=== PATIENT | female | born 1975 | race Caucasian/White ===

== ENCOUNTER → 2021-06-14 | Outpatient (CLI) | payer BC ==
[2021-06-14 08:57] VITALS: BP 198/100; PULSE 110; RESP 17; TEMP 98.7
--- NOTE | 2021-06-14 10:07 | P.HPOB ---
History of Present Illness H&P Date: 06/14/21 Chief Complaint: The patient is here for her routine gynecologic exam and ma mmogram. This is a 45-year-old 0-2 with an LMP of 04/08/2021. The patient is here to establish with this office. She has been using condoms and spermicide for control. It is been about 6 years since her last pelvic exam. She has never had a mammogram. She states her menstrual periods have generally been regular every month except for November 2020 when she missed her menstrual per iod. And she has not had a menstrual period since her LMP which started on 04/08/2021. She does not think she is . She has been experiencing some hot flashes which have seemed to increase in frequency during the past few months. She is otherwise without complaints. Review of Systems The patient's weight has been stable over the last year. She denies respira tory, cardiac, or G.I. problems. 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 History of Any Multi-Drug Resistant Organisms: None Reported Past Surgical History: No Surgical Hx Reported Past Anesthesia/Blood Transfusion Reactions: No Reported Reaction, Unable to Obtain Past Psychological History: No Psychological Hx Reported (She has been under some recent stress but denies depression symptoms.) Smoking Status: Never smoker Past Alcohol Use History: Rare (3 or 4 per year) Past Drug Use History: None Reported Additional History: She has been since 1997. She works part-time for a [employer]. - Past Family History Mother Family Medical History: Cancer, Diabetes Mellitus, Hypertension Additional Family Medical History / Comment(s): Uterine cancer. Father Family Medical History: Hypertension Medications and Allergies Home Medications Medication Instructions Recorded Confirmed Type No Known Home Medications 06/14/21 06/14/21 History Allergies Allergy/AdvReac Type Severity Reaction Status Date / Time No Known Allergies Allergy Unverified 06/14/21 08:51 Exam Vital Signs Temp Pulse Resp BP Pulse Ox 06/14/21 08:51 98.7 F 110 H 17 198/100 98 Intake and Output 06/13/21 06/14/21 06/14/21 22:59 06:59 14:59 Other: Weight 133.81 kg Height 5 feet 8 inches, weight 295 pounds, BMI 44.9. Repeat blood pressure 178/102. This is a well-developed well-nourished heavyset white female who is alert and oriented times 3 in no acute distress. HEENT: Within normal limits. NECK: Supple without mass or thyromegaly. CHEST AND LUNGS: Clear to auscultation. HEART: Mild tachycardia and regular rhythm. BREASTS: Are without mass or discharge. AXILLARY EXAM: Negative for adenopathy. BACK: Negative for CVA tenderness. ABDOMEN: Soft, obese, nontender, without palpable masses. PELVIC EXAM: Normal external genitalia. Cervix and vagina appear normal. There is no unusual discharge. There is no evidence of prolapse. The uterus is midposition, approximately 14 week size and nontender. There are no palpable adnexal masses or tenderness. Bimanual examination is somewhat limited secondary to her size. RECTAL EXAM: negative for mass or tenderness and is negative for occult blood. EXTREMITIES: Nontender. IMPRESSION: 1. 45-year-old female with uterine enlargement who is using condoms and spermicide for control. 2. Recent oligomenorrhea following fairly regular menstrual periods with mild vasomotor symptoms. Differential diagnosis will include perimenopausal symptoms, and less likely . 3. Elevated blood pressure with no history of chronic hypertension per the patient. 4. Obesity. PLAN: 1. Pap smear cotest was performed. 2. Self breast awareness was discussed with the patient. We have also discussed symptoms associated with inflammatory breast cancer. 3. Screening mammogram will be done today. 4. I have recommended pelvic ultrasound because of her uterine enlargement. 5. Urine test will be done today. 6. The patient will keep a menstrual calendar and call if menstrual problems. 7.Osteoporosis prevention was discussed. I have stressed the importance of adequate calcium, vitamin D and regular exercise. Recommended amounts of calcium and vitamin D were also discussed. 8. We have discussed her elevated blood pressure. She states she will go to her primary care physician's office immediately after her appointment for evaluation of her significantly elevated blood pressure. I also recommended home blood pressure checks. We have discussed the importance of good nutrition, regular exercise, low-sodium diet and relaxation techniques. We have also discussed how weight loss can also be very helpful in helping to manage blood pressure. 9. She has completed her Covid vaccination series and did receive a booster as well. 10 She was advised to return in one year for her annual well woman exam and as needed.
--- NOTE | 2021-06-15 12:30 | MM ---
Reason for exam: screening (asymptomatic). Baseline mammogram. Physical Findings: A clinical breast exam by your physician is recommended on an annual basis and results should be correlated with mammographic findings. MG 3D Screening Mammo W/Cad Bilateral CC and MLO view(s) were taken. The breast tissue is heterogeneously dense. This may lower the sensitivity of mammography. Nodular denisty upper outer left breast zone A. ASSESSMENT: Incomplete: need additional imaging evaluation, BI-RAD 0 RECOMMENDATION: Special view mammogram and ultrasound of the left breast. [facility] will attempt to contact patient to return for supplemental views and ultrasound.
== END ==
LOC: WWCWWP 08:27
PROVIDERS: ATTEND Obstetrics & Gynecology
DX: Z01.419 Encounter for gynecological examination (general) (routine) without abnormal findings (principal); Z12.31 Encounter for screening mammogram for malignant neoplasm of breast; N85.2 Hypertrophy of uterus; N91.5 Oligomenorrhea, unspecified; R03.0 Elevated blood-pressure reading, without diagnosis of hypertension; E66.9 Obesity, unspecified; Z68.41 Body mass index [BMI] 40.0-44.9, adult
CPT/HCPCS: 77063; 77067; 81025

== ENCOUNTER → 2021-12-27 | Outpatient (CLI) | payer BC ==
--- NOTE | 2021-12-27 09:32 | MM ---
Reason for Exam: Follow-up at short interval from prior study. Last screening mammogram was performed 6 month(s) ago. Patient History: Menarche at age 11. First Full-Term at age 24. Risk Values: Isabel 5 year model risk: 1.0%. NCI Lifetime model risk: 10.2%. Prior Study Comparison: 06/14/2021 Bilateral Screening Mammogram, [facility]. 06/21/2021 Left Diagnostic Mammogram, [facility]. Tissue Density: Left: There are scattered fibroglandular densities. Findings: Analyzed By CAD. No new suspicious masses, calcifications or distortions. Redemonstration of left breast anterior depth 9 mm mass in the upper slightly outer quadrant. Overall Assessment: Incomplete: need additional imaging evaluation, BI-RAD 0 Management: Diagnostic Breast Ultrasound of the left breast. A clinical breast exam by your physician is recommended on an annual basis and results should be correlated with mammographic findings. This exam should not preclude additional follow-up of suspicious palpable abnormalities. Results were given to the patient verbally at the time of exam. Electronically signed and approved by: Pravin Okeefe DO
--- NOTE | 2021-12-27 10:06 | USB ---
Reason for Exam: Follow-up at short interval from prior study. Patient History: Menarche at age 11. First Full-Term at age 24. Risk Values: Isabel 5 year model risk: 1.0%. NCI Lifetime model risk: 10.2%. Prior Study Comparison: 06/14/2021 Bilateral Screening Mammogram, [facility]. 06/21/2021 Left Diagnostic Mammogram, [facility]. Findings: The lower outer quadrant of the left breast, the axilla of the left breast and the retroareolar of the left breast were scanned. A complete US of all four quadrants of the breast and retro-areolar region were reviewed. Redemonstration of lymph node at 4:00 3 cm from nipple with normal reniform morphology, fatty hilum and cortex within normal limits for thickness.Grayscale imaging of the left breast in area of concern. Redemonstration of lymph node at 4:00 3 cm from nipple with normal reniform morphology, fatty hilum and cortex within normal limits for thickness. Overall Assessment: Benign, BI-RAD 2 Management: Screening Mammogram of both breasts in 1 year. A clinical breast exam by your physician is recommended on an annual basis and results should be correlated with mammographic findings. This exam should not preclude additional follow-up of suspicious palpable abnormalities. Results were given to the patient verbally at the time of exam. Electronically signed and approved by: Pravin Okeefe DO
== END | disposition home or self-care (01) ==
LOC: RADMAMWWP 08:59
PROVIDERS: ATTEND Obstetrics & Gynecology
DX: R92.8 Other abnormal and inconclusive findings on diagnostic imaging of breast (principal)
CPT/HCPCS: 77061; 77065

== ENCOUNTER → 2022-07-18 | Outpatient (CLI) | payer BC ==
[2022-07-18 08:07] VITALS: BP 144/87; PULSE 93; RESP 17; TEMP 98.3
--- NOTE | 2022-07-18 08:54 | P.HPOB ---
History of Present Illness H&P Date: 07/18/22 Chief Complaint: The patient is here for her routine gynecologic exam and ma mmogram. This is a 46-year-old 0-2 with an LMP of 07/03/2022. The patient has used condoms with spermicide for control. She had slight menstrual irregularity in 2020, but they have been regular most of last year until March 2022. After March of this year, she skipped 2 months until her LMP. Her menstrual periods have typically been lasting 6-7 days with heavier flow on days 2 and 3. On the heavier days she has to change her protection up to every 3 hours. She states they have not very big problem and denies any significant symptoms from her enlarged uterus. She denies intermenstrual bleeding. Review of Systems The patient has lost 11 pounds over the last year. She has been trying to lose weight with dietary changes. She denies respiratory, cardiac, or G.I. problems. 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 History of Any Multi-Drug Resistant Organisms: None Reported Past Surgical History: No Surgical Hx Reported Past Anesthesia/Blood Transfusion Reactions: No Reported Reaction, Unable to Obtain Past Psychological History: No Psychological Hx Reported Smoking Status: Never smoker Past Alcohol Use History: Rare (3 or 4 per year.) Past Drug Use History: None Reported - Past Family History Mother Family Medical History: AFIB, Cancer, Diabetes Mellitus, Hypertension Additional Family Medical History / Comment(s): Uterine cancer. Parkinson's disease and atrial fibrillation. Father Family Medical History: Hypertension Medications and Allergies Home Medications Medication Instructions Recorded Confirmed Type Iron 1 tab PO DAILY 07/18/22 07/18/22 History amLODIPine 10 mg PO HS 07/18/22 07/18/22 History lisinopriL 40 mg PO DAILY 07/18/22 07/18/22 History Allergies Allergy/AdvReac Type Severity Reaction Status Date / Time No Known Allergies Allergy Unverified 07/18/22 08:02 Exam Vital Signs Temp Pulse Resp BP Pulse Ox 07/18/22 08:04 98.3 F 93 17 144/87 98 Intake and Output 07/17/22 07/18/22 07/18/22 22:59 06:59 14:59 Other: Weight 128.82 kg Height 5 feet 9 inches, weight 284 pounds, BMI 41.9. This is a well-developed well-nourished heavyset white female who is alert and oriented times 3 in no acute distress. HEENT: Within normal limits. NECK: Supple without mass or thyromegaly. CHEST AND LUNGS: Clear to auscultation. HEART: Regular rate and rhythm. BREASTS: Are without mass or discharge. AXILLARY EXAM: Negative for adenopathy. BACK: Negative for CVA tenderness. ABDOMEN: Soft, nontender, without palpable masses. PELVIC EXAM: Normal external genitalia. Cervix and vagina appear normal. There is no unusual discharge. There is no evidence of prolapse. The uterus is midposition,12-14 week size and nontender. There are no palpable adnexal masses or tenderness. RECTAL EXAM: Rectovaginal exam is negative for mass or tenderness and is negative for occult blood. EXTREMITIES: Nontender. IMPRESSION: 1. 46-year-old perimenopausal female with known fibroid uterus approximately 12-14 weeks' size which is minimally symptomatic for the patient. Her last ultrasound done on 06/21/2021 showed a fibroid uterus with the largest fibroid measuring 8.9 cm. PLAN: 1. Pap smear was deferred since she had a negative Pap smear cotest on 06/14/2021. 2. Self breast awareness was discussed with the patient. We have also discussed symptoms associated with inflammatory breast cancer. 3. Screening mammogram will be done today. 4. We will plan on repeating the pelvic ultrasound to further evaluate the uterine enlargement and to remeasure the uterine fibroids. The order slip was given to the patient for this. If the fibroids remained stable and she is not having significant symptoms from this, we can consider conservative management. We have also discussed the option of hysterectomy if there is significant enlargement or if she is having more symptoms. 5. Osteoporosis prevention was discussed. I have stressed the importance of adequate calcium, vitamin D and regular exercise. Recommended amounts of calcium and vitamin D were also discussed. 6. She was advised to return in one year for her annual well woman exam and as needed.
--- NOTE | 2022-07-18 14:38 | MM ---
Reason for Exam: Screening (asymptomatic). Last mammogram was performed 1 year(s) and 1 month(s) ago. Patient History: Menarche at age 11. First Full-Term at age 24. Patient has history of breast feeding. Last menstrual period: 07/03/2022 Risk Values: Isabel 5 year model risk: 1.0%. NCI Lifetime model risk: 10.2%. Prior Study Comparison: 06/14/2021 Bilateral Screening Mammogram, [facility]. 06/21/2021 Left Diagnostic Mammogram, [facility]. 12/27/2021 Left MG 3D diag mammo w/cad LT, [facility]. Tissue Density: There are scattered fibroglandular densities. Findings: Analyzed By CAD. There is no suspicious group of microcalcifications or new suspicious mass in either breast. Stable chronic nodularity within the left breast. Overall Assessment: Benign, BI-RAD 2 Management: Screening Mammogram of both breasts in 1 year. A clinical breast exam by your physician is recommended on an annual basis and results should be correlated with mammographic findings. Electronically signed and approved by: Artemio Badillo D.O.
== END ==
LOC: WWCWWP 07:52
PROVIDERS: ATTEND Obstetrics & Gynecology
DX: Z12.31 Encounter for screening mammogram for malignant neoplasm of breast (principal); I10 Essential (primary) hypertension; Z01.411 Encounter for gynecological examination (general) (routine) with abnormal findings; Z79.899 Other long term (current) drug therapy; D25.9 Leiomyoma of uterus, unspecified
CPT/HCPCS: 77063; 77067

== ENCOUNTER → 2023-01-18 | Outpatient (CLI) | payer BC ==
--- NOTE | 2023-01-19 14:10 | US ---
EXAMINATION TYPE: US pelvic complete DATE OF EXAM: 01/18/2023 COMPARISON: 06/21/2021 CLINICAL INDICATION: Female, 47 years old with history of R68.89 GENERAL SYMPTOMS AND SIGNS D25.9 LEI OMYOMA; Patient denies any signs or symptoms at this time TECHNIQUE: Transabdominal sonographic images of the pelvis were acquired. Transvaginal sonographic i mages were declined by patient due to current menstrual cycle Date of LMP: Now EXAM MEASUREMENTS: Uterus: 17.2 x 9.4 x 13.1 cm Endometrial Stripe: 0.8 cm Right Ovary: 4.7 x 3.7 x 3.4 cm Left Ovary: 2.1 x 1.7 x 1.9 cm 1. Uterus: Anteverted. Multiple fibroids 1. Right JAME = 6.5 x 4.8 x 4.6 cm PREV 4.2 x 3.8 x 3.7 cm 2. Right UT Fundus = 8.5 x 7.2 x 7.5 cm PREV = 8.8 x 6.8 x 8.0 cm 3. Left UT Fundus = 4.5 x 3.0 x 3.9 cm Not measured previously 2. Endometrium: Trace fluid within 3. Right Ovary: wnl 4. Left Ovary: wnl 5. Bilateral Adnexa: wnl 6. Posterior cul-de-sac: wnl IMPRESSION: 1. Bulky fibroid uterus. Largest fibroid measuring up to 8.5 cm. The fibroid along the right lower ut erine segment appears larger 6.5 cm versus 4.2 cm, previously. 2. Trace fluid within the uterine cavity. Endometrial stripe thickness of 8 mm.
--- NOTE | 2023-01-23 13:39 | P.PN ---
Progress Note - Text Progress Note Date: 01/23/23 OUTPATIENT FOLLOW-UP NOTE TEST(S)/RESULTS: Pelvic ultrasound done on 01/18/2023 shows a bulky multi- fibroid uterus with a slight increase in the entire uterine dimensions. The uterine length was measured at 17.2 cm where her previous ultrasound on 06/21/2021 showed a length of 15.7 cm. The largest fibroid measured 8.5 cm where the previous largest fibroid measured 8.9 cm. The right lower uterine segment fibroid went from 4.2 cm to 6.5 cm. The ovaries appeared within normal limits. METHOD OF NOTIFICATION: The patient was notified by phone on 01/23/2023. PATIENT COMMENTS: She denies any symptoms from the enlarged uterus including pelvic pressure or discomfort. She states her menstrual. His are regular every month and seemed to have gotten slightly less heavy over time. DIAGNOSIS: Multi-fibroid uterus which is asymptomatic. Mild increase in size from her previous pelvic ultrasound done on 06/21/2021. DISCUSSION: She will return in approximate 6 months for her annual well woman examination and at that time we will again reassess her uterus. We have discussed the option of hysterectomy, but since it does not seem to be causing any significant problems for her, we will continue conservative management. She is probably approaching the menopausal change, which may result in a decrease in the uterine size. PLAN: As above.
== END | disposition home or self-care (01) ==
LOC: RADUSWWP 15:00
PROVIDERS: ATTEND Obstetrics & Gynecology
DX: D25.9 Leiomyoma of uterus, unspecified (principal); N85.2 Hypertrophy of uterus; R68.89 Other general symptoms and signs
CPT/HCPCS: 76856

== ENCOUNTER → 2023-09-25 | Outpatient (CLI) | payer BC ==
--- NOTE | 2023-10-04 15:53 | WWHP ---
This is from the 09/25/23 visit (not 07/26/23). [facility] - HISTORY AND PHYSICAL CHIEF COMPLAINT: The patient is here for her routine gynecologic exam and mammogram. HISTORY OF PRESENT ILLNESS: This is a 47-year-old female with an LMP of 08/23/2023. She states her menstrual periods have been spacing out, especially during the past 8 months. Last year, the menstrual periods were coming about every 1-3 months until January of 2023 and then she did not have another menstrual period until her LMP. She states she has been experiencing hot flashes for 1-2 years. She is otherwise without gynecologic complaints. She has been using condoms and/or spermicide for control. PAST MEDICAL HISTORY: Unchanged from her 2022 H and P. PAST SURGICAL HISTORY: Unchanged from her 2022 H and P. SOCIAL HISTORY: She denies tobacco and drug use. She has about 1 alcohol containing drink per month. She is and works part-time at a [employer]. She also spends a fair amount of time caring for her parents. FAMILY HISTORY: Mother has Parkinson disease. Also refer to the 2022 H and P. REVIEW OF SYSTEMS: She states her weight has been stable. She denies respiratory, cardiac, or GI problems. PHYSICAL EXAMINATION: VITAL SIGNS: Blood pressure 153/97, height 5 feet 9 inches, weight 280 pounds, temperature 97.8, pulse 92, pulse oximeter 98%. GENERAL: This is a well-developed, well-nourished, heavyset white female, who is alert and oriented x3, in no acute distress. HEENT: Within normal limits. NECK: Supple without mass or thyromegaly. CHEST AND LUNGS: Clear to auscultation. HEART: Regular rate and rhythm. Breasts are without mass or discharge. Axillary exam is negative for adenopathy. ABDOMEN: Soft, nontender, without palpable masses. PELVIC: Normal external genitalia. Cervix and vagina appear normal with no unusual discharge. Bimanual examination, the uterus is mid positioned, approximately 12 week size and somewhat firm and slightly irregular, consistent with a fibroid uterus. The patient states she has had ultrasounds done over the past 2 years because of uterine fibroids. There are no palpable adnexal masses or tenderness. RECTOVAGINAL: There is a moderate to large amount of firm stool in the rectum. There are no palpable rectal masses or tenderness. The stool is Hemoccult negative. EXTREMITIES: Nontender. IMPRESSION: 1. 47-year-old perimenopausal female using condoms and spermicides for control, with a known fibroid uterus approximately 12-week size. 2. History of chronic hypertension with elevated blood pressure. PLAN: 1. Pap smear test was performed. The patient states her last Pap smear was more than 2 years ago. She does not have any history of abnormal Pap smears. Database is limited because of the electronic medical record computer system currently being down. We will proceed with the Pap smear as mentioned above since she is probably due for her Pap smear. 2. Self breast examination was discussed. We have reviewed the symptoms of inflammatory breast cancer. 3. Screening mammogram will be done today. 4. Osteoporosis prevention was discussed. 5. We have discussed her elevated blood pressure. I have recommended that she check her own blood pressures at home on a regular basis since she does have her own blood pressure cuff. She will follow up with her PCP for blood pressure elevations. 6. Colorectal cancer screening was discussed. She states she did a Cologuard test last year. This will continue to be done through her PCP. 7. Conservative management for her fibroid uterus. She was instructed to call if she is having pelvic symptoms or discomfort. 8. She will keep a menstrual calendar and call if menstrual problems. 9. She will return in 1 year, or as needed. MMODL / AZN: [id number] / JITENDRA
--- NOTE | 2023-10-08 15:22 | P.PN ---
Progress Note - Text Progress Note Date: 10/08/23 OUTPATIENT FOLLOW-UP NOTE TEST(S)/RESULTS: Test results from 09/25/2023 include negative Pap smear and negative high-risk HPV testing. METHOD OF NOTIFICATION: The patient was notified by phone on 10/08/2023. PATIENT COMMENTS: She is happy to hear these results. DIAGNOSIS: Negative Pap smear cotest. DISCUSSION: This Pap smear cotest was done slightly earlier than usual because the date of her last Pap smear cotest was not known because of the computers being down at [facility] at the time of her visit. The screening mammogram is still pending and this is probably delayed because of the computer issues. The patient was told she should expect to hear the results through the mail within the next couple of weeks. She can call if she has not received the results of the mammogram in 2 weeks. PLAN: As above. She was advised to return in one year for her annual well woman exam.
--- NOTE | 2023-10-11 12:22 | MM ---
Reason for Exam: Screening (asymptomatic). Last mammogram was performed 1 year(s) and 2 month(s) ago. Patient History: Menarche at age 11. First Full-Term at age 24. Patient has history of breast feeding. Risk Values: Isabel 5 year model risk: 1.0%. NCI Lifetime model risk: 10.0%. Prior Study Comparison: 06/21/2021 Left Diagnostic Mammogram, [facility]. 12/27/2021 Left MG 3D diag mammo w/cad LT, [facility]. 07/18/2022 Bilateral MG 3D screening mammo w/cad, [facility]. Tissue Density: There are scattered areas of fibroglandular density. Findings: Analyzed By CAD. Right breast: There is no suspicious group of microcalcifications or new suspicious mass. Left breast: There is no suspicious group of microcalcifications or new suspicious mass. Overall Assessment: Negative, BI-RAD 1 Management: Screening Mammogram of both breasts in [address] [facility] will attempt to contact patient to return for supplemental views and ultrasound if indicated. Patient should continue monthly self-breast exams. A clinical breast exam by your physician is recommended on an annual basis. This exam should not preclude additional follow-up of suspicious palpable abnormalities. Note on Isabel scores and lifetime risk: 1. A Isabel score greater than 3% is considered moderate risk. If this is the case, consider specialist referral to assess eligibility for a risk reducing agent. 2. If overall lifetime risk for the development of breast cancer is 20% or higher, the patient may qualify for future screening with alternating mammogram and breast MRI. Electronically signed and approved by: Pravin Okeefe DO
== END | disposition home or self-care (01) ==
LOC: RADMAMWWP 12:00
PROVIDERS: ATTEND Obstetrics & Gynecology
DX: Z01.419 Encounter for gynecological examination (general) (routine) without abnormal findings
CPT/HCPCS: 77063; 77067